=== PATIENT | female | born 1965 | race Caucasian/White ===

== ENCOUNTER 2017-07-14 16:38 | Inpatient (IN) | payer OTHER ==
[2017-07-14] MEDS ORDERED: NITROGLYCERIN OINT 1 INCH/GM PACKET TOPICAL STA (16:58)
[2017-07-14] MEDS ORDERED: ASPIRIN 81 MG PO STA (16:58)
--- NOTE | 2017-07-14 17:01 | ED ---
General Adult HPI - General Chief complaint: Chest Pain Stated complaint: Chest Pain Time Seen by Provider: 07/14/17 16:40 Source: patient, RN notes reviewed Mode of arrival: ambulatory Limitations: no limitations - History of Present Illness Initial comments: This is a 51-year-old female who presents emergency Department with no significant past medical history except morbid obesity. Patient states she has a significant family history of heart disease in her brothers and sisters and father. Patient states today about 1:00 she started having chest pain which she thought to be heartburn but taking her antacids did not help her. Patient states the pain radiates to the right side of her neck and she was short of breath with the pain. Patient states taking a deep breath seems to increase the pain. Patient denies any diaphoresis. Patient denies any headache patient denies numbness weakness. Patient denies any lightheadedness dizziness or near syncopal episode. Patient denies abdominal pain patient denies nausea vomiting or diarrhea. Patient states she has not had symptoms similar to this in the past. - Related Data Home Medications Medication Instructions Recorded Confirmed Famotidine [Pepcid AC] 10 mg PO DAILY PRN 07/14/17 07/14/17 Travoprost [Travatan Z 0.004%] 1 drop BOTH EYES HS 07/14/17 07/14/17 Allergies Allergy/AdvReac Type Severity Reaction Status Date / Time No Known Allergies Allergy Verified 07/14/17 17:12 Review of Systems ROS Statement: Those systems with pertinent positive or pertinent negative responses have been documented in the HPI. ROS Other: All systems not noted in ROS Statement are negative. Past Medical History Additional Past Medical History / Comment(s): glaucoma History of Any Multi-Drug Resistant Organisms: None Reported Past Surgical History: Section, Orthopedic Surgery Additional Past Surgical History / Comment(s): rt knee, partial hysterctomy Past Psychological History: No Psychological Hx Reported Smoking Status: Never smoker Past Alcohol Use History: None Reported Past Drug Use History: None Reported General Exam - General Exam Comments Initial Comments: GENERAL: Patient is well-developed and well-nourished. Patient is nontoxic and well- hydrated and is in mild distress. ENT: Neck is soft and supple. No significant lymphadenopathy is noted. Oropharynx is clear. Moist mucous membranes. Neck has full range of motion without eliciting any pain. EYES: The sclera were anicteric and conjunctiva were pink and moist. Extraocular movements were intact and pupils were equal round and reactive to light. Eyelids were unremarkable. PULMONARY: Unlabored respirations. Good breath sounds bilaterally. No audible rales rhonchi or wheezing was noted. CARDIOVASCULAR: There is a regular rate and rhythm without any murmurs gallops or rubs. ABDOMEN: Soft and nontender with normal bowel sounds. No palpable organomegaly was noted. There is no palpable pulsatile mass. SKIN: Skin is clear with no lesions or rashes and otherwise unremarkable. NEUROLOGIC: Patient is alert and oriented x3. Cranial nerves II through XII are grossly intact. Motor and sensory are also intact. Normal speech, volume and content. Symmetrical smile. MUSCULOSKELETAL: Normal extremities with adequate strength and full range of motion. No lower extremity swelling or edema. No calf tenderness. LYMPHATICS: No significant lymphadenopathy is noted PSYCHIATRIC: Normal psychiatric evaluation. Limitations: no limitations Course Vital Signs 07/14/17 07/14/17 16:40 17:45 Temperature 98.2 F Pulse Rate 103 H 93 Respiratory 22 16 Rate Blood Pressure 194/104 151/65 O2 Sat by Pulse 95 96 Oximetry Medical Decision Making - Medical Decision Making EKG shows normal sinus rhythm at 90 bpm IN interval 140 QRS is 90 QT interval 358 QTC is 459. Patient's EKG shows no ST segment elevation or depression or T wave normalities are noted. Patient does have 1 PAC Chest x-ray shows no acute abnormality. Patient still has a little chest pressure/started the patient on heparin. I spoke with Dr. Fenton he agreed to admit the patient I wrote admitting orders I continue the heparin nitro patient aspirin on the floor. I consult to cardiology. - Lab Data Result diagrams: 07/14/17 17:03 07/14/17 17:03 Lab Results 07/14/17 07/14/17 07/14/17 Range/Units 17:03 17:03 17:03 WBC 7.2 (3.8-10.6) k/uL RBC 4.86 (3.80-5.40) m/uL Hgb 15.1 (11.4-16.0) gm/dL Hct 44.7 (34.0-46.0) % MCV 92.0 (80.0-100.0) fL MCH 31.1 (25.0-35.0) pg MCHC 33.8 (31.0-37.0) g/dL RDW 12.7 (11.5-15.5) % Plt Count 208 (150-450) k/uL Neutrophils % 60 % Lymphocytes % 31 % Monocytes % 5 % Eosinophils % 1 % Basophils % 1 % Neutrophils # 4.3 (1.3-7.7) k/uL Lymphocytes # 2.3 (1.0-4.8) k/uL Monocytes # 0.3 (0-1.0) k/uL Eosinophils # 0.1 (0-0.7) k/uL Basophils # 0.0 (0-0.2) k/uL PT (9.0-12.0) sec INR (<1.2) APTT (22.0-30.0) sec Sodium 138 (137-145) mmol/L Potassium 4.2 (3.5-5.1) mmol/L Chloride 100 (98-107) mmol/L Carbon Dioxide 25 (22-30) mmol/L Anion Gap 13 mmol/L BUN 10 (7-17) mg/dL Creatinine 0.80 (0.52-1.04) mg/dL Est GFR (MDRD) Af Amer >60 (>60 ml/min/1.73 sqM) Est GFR (MDRD) Non-Af >60 (>60 ml/min/1.73 sqM) Glucose 226 H (74-99) mg/dL Calcium 9.5 (8.4-10.2) mg/dL Magnesium 2.2 (1.6-2.3) mg/dL Total Bilirubin 0.4 (0.2-1.3) mg/dL AST 27 (14-36) U/L ALT 61 H (9-52) U/L Alkaline Phosphatase 100 (38-126) U/L Total Creatine Kinase 104 (30-135) U/L CK-MB (CK-2) 0.6 (0.0-2.4) ng/mL CK-MB (CK-2) Rel Index 0.6 Troponin I <0.012 (0.000-0.034) ng/mL NT-Pro-B Natriuret Pep pg/mL Total Protein 7.5 (6.3-8.2) g/dL Albumin 4.4 (3.5-5.0) g/dL 07/14/17 07/14/17 Range/Units 17:03 17:03 WBC (3.8-10.6) k/uL RBC (3.80-5.40) m/uL Hgb (11.4-16.0) gm/dL Hct (34.0-46.0) % MCV (80.0-100.0) fL MCH (25.0-35.0) pg MCHC (31.0-37.0) g/dL RDW (11.5-15.5) % Plt Count (150-450) k/uL Neutrophils % % Lymphocytes % % Monocytes % % Eosinophils % % Basophils % % Neutrophils # (1.3-7.7) k/uL Lymphocytes # (1.0-4.8) k/uL Monocytes # (0-1.0) k/uL Eosinophils # (0-0.7) k/uL Basophils # (0-0.2) k/uL PT 10.3 (9.0-12.0) sec INR 1.0 (<1.2) APTT 22.8 (22.0-30.0) sec Sodium (137-145) mmol/L Potassium (3.5-5.1) mmol/L Chloride (98-107) mmol/L Carbon Dioxide (22-30) mmol/L Anion Gap mmol/L BUN (7-17) mg/dL Creatinine (0.52-1.04) mg/dL Est GFR (MDRD) Af Amer (>60 ml/min/1.73 sqM) Est GFR (MDRD) Non-Af (>60 ml/min/1.73 sqM) Glucose (74-99) mg/dL Calcium (8.4-10.2) mg/dL Magnesium (1.6-2.3) mg/dL Total Bilirubin (0.2-1.3) mg/dL AST (14-36) U/L ALT (9-52) U/L Alkaline Phosphatase (38-126) U/L Total Creatine Kinase (30-135) U/L CK-MB (CK-2) (0.0-2.4) ng/mL CK-MB (CK-2) Rel Index Troponin I (0.000-0.034) ng/mL NT-Pro-B Natriuret Pep 42 pg/mL Total Protein (6.3-8.2) g/dL Albumin (3.5-5.0) g/dL Critical Care Time Critical Care Time: Yes Total Critical Care Time: 35 Disposition Clinical Impression: Unstable angina pectoris Disposition: ADMITTED IP TO THIS HOSP Referrals: None,Stated [Primary Care Provider] - 1-2 days Time of Disposition: 18:47
[2017-07-14 17:25] LABS: Basophils % (A) 1 %; CH 30.6; CHCM 33.4; Eosinophils # (A) 0.1 k/uL (0-0.7); Eosinophils % (A) 1 %; HCT 44.7 % (34.0-46.0); HDW 2.53; HGB 15.1 gm/dL (11.4-16.0); Luc # (Auto) 0.18; Luc % (Auto) 3; Lymphocytes # (A) 2.3 k/uL (1.0-4.8); Lymphocytes % (A) 31 %; MCH 31.1 pg (25.0-35.0); MCHC 33.8 g/dL (31.0-37.0); Mean Platelet Volume 7.5; Monocytes # (A) 0.3 k/uL (0-1.0); Monocytes % (A) 5 %; Neutrophils # (A) 4.3 k/uL (1.3-7.7); Neutrophils % (A) 60 %; RBC 4.86 m/uL (3.80-5.40); RDW 12.7 % (11.5-15.5); WBC 7.2 k/uL (3.8-10.6); WBC (Perox) 7.05
[2017-07-14 17:28] LABS: ALT 61 U/L (9-52); AST 27 U/L (14-36); Alkaline Phosphatase 100 U/L (38-126); Anion Gap 13 mmol/L; Blood Urea Nitrogen 10 mg/dL (7-17); Calcium 9.5 mg/dL (8.4-10.2); Carbon Dioxide 25 mmol/L (22-30); Chloride 100 mmol/L (98-107); Glucose 226 mg/dL (74-99); Magnesium 2.2 mg/dL (1.6-2.3); Non-African American GFR(MDRD) >60 (>60 ml/min/1.73 sqM); Potassium 4.2 mmol/L (3.5-5.1); Sodium 138 mmol/L (137-145); Total Bilirubin 0.4 mg/dL (0.2-1.3); Total Protein 7.5 g/dL (6.3-8.2)
[2017-07-14 17:31] LABS: Partial Thromboplastin Time 22.8 sec (22.0-30.0); Prothrombin Time 10.3 sec (9.0-12.0)
[2017-07-14 17:40] LABS: Creatine Kinase 104 U/L (30-135)
[2017-07-14 17:54] LABS: Creatine Kinase MB 0.6 ng/mL (0.0-2.4); Troponin I <0.012 ng/mL (0.000-0.034)
--- NOTE | 2017-07-14 18:16 | XR ---
EXAMINATION TYPE: XR chest 2V DATE OF EXAM: 07/14/2017 COMPARISON: NONE HISTORY: Pain TECHNIQUE: Frontal and lateral views of the chest are obtained. FINDINGS: There is no focal air space opacity, pleural effusion, or pneumothorax seen. The cardiac silhouette size is within normal limits. The osseous structures are intact. IMPRESSION: No acute cardiopulmonary process.
[2017-07-14] MEDS ORDERED: HEPARIN SODIUM,PORCINE 5,000 UNIT/ML 1 ML VIAL IV ONE (18:46)
[2017-07-14] MEDS ORDERED: NITROGLYCERIN SL TABS 0.4 MG TAB SUBLINGUAL PRN (18:47)
[2017-07-14] MEDS ORDERED: HEPARIN SODIUM,PORCINE/D5W PMX 25,000 UNIT in DEXTROSE/WATER 1 500ML.BAG IV SCH (19:00)
[2017-07-14 21:04] VITALS: BMI 48.2
[2017-07-14 23:44] LABS: Creatine Kinase 77 U/L (30-135)
[2017-07-14 23:56] LABS: Creatine Kinase MB 0.4 ng/mL (0.0-2.4); Troponin I <0.012 ng/mL (0.000-0.034)
[2017-07-15] MEDS: NITROGLYCERIN OINT 1 INCH/GM PACKET TOPICAL SCH ×2 (01:13→05:22)
[2017-07-15 05:06] LABS: Cholesterol 175 mg/dL (<200); HDL Cholesterol 41 mg/dL (40-60)
[2017-07-15 05:19] LABS: Creatine Kinase 66 U/L (30-135)
[2017-07-15 05:31] LABS: Creatine Kinase MB 0.3 ng/mL (0.0-2.4); Troponin I <0.012 ng/mL (0.000-0.034)
--- NOTE | 2017-07-15 10:49 | ECHOF ---
Referral Reason:chest pain MEASUREMENTS -------- HEIGHT: 149.9 cm WEIGHT: 108.0 kg BP: 141/84 RVIDd: 3.0 cm (< 3.3) IVSd: 1.2 cm (0.6 - 1.1) LVIDd: 4.8 cm (3.9 - 5.3) LVPWd: 1.2 cm (0.6 - 1.1) IVSs: 1.5 cm LVIDs: 2.9 cm LVPWs: 1.6 cm LA Diam: 3.4 cm (2.7 - 3.8) LAESV Index (A-L): 23.94 ml/m Ao Diam: 2.8 cm (2.0 - 3.7) AV Cusp: 1.9 cm (1.5 - 2.6) MV EXCURSION: 17.007 mm (> 18.000) MV EF SLOPE: 73 mm/s (70 - 150) EPSS: 0.3 cm MV E John: 0.89 m/s MV DecT: 222 ms MV A John: 0.86 m/s MV E/A Ratio: 1.04 FINDINGS -------- Sinus rhythm. This was a technically adequate study. The left ventricular size is normal. There is borderline concentric left ventricular hypertrophy. Overall left ventricular systolic function is normal with, an EF between 60 - 65 %. The right ventricle is normal in size. Normal LA size by volume 22+/-6 ml/m2. The right atrial size is normal. The aortic valve is trileaflet and appears structurally normal. The mitral valve is normal. The tricuspid valve appears structurally normal. There is no pulmonic regurgitation present. The aortic root size is normal. IVC Not well visulized. There is no pericardial effusion. CONCLUSIONS -------- 1. Sinus rhythm. 2. The mitral valve is normal. 3. The tricuspid valve appears structurally normal. 4. There is no pulmonic regurgitation present. 5. The aortic root size is normal. 6. IVC Not well visulized. 7. There is no pericardial effusion. 8. This was a technically adequate study. 9. The left ventricular size is normal. 10. There is borderline concentric left ventricular hypertrophy. 11. Overall left ventricular systolic function is normal with, an EF between 60 - 65 %. 12. The right ventricle is normal in size. 13. Normal LA size by volume 22+/-6 ml/m2. 14. The right atrial size is normal. 15. The aortic valve is trileaflet and appears structurally normal. AGRICULTURAL PURCHASING AGENT: Marcie Dumont RDCS
--- NOTE | 2017-07-15 11:05 | P.CRDCN ---
History of Present Illness Consult date: 07/15/17 History of present illness: This is a 51-year-old female. Past medical history significant for gastroesophageal reflux disease. She states yesterday while she was at work she started feeling midsternal chest heaviness. She states it felt like it was a brick sitting on the center of her chest. The pain radiated up into the right neck and jaw. It was associated with difficulty in taking a deep breath, diaphoresis and mild nausea. She states this pain persisted and she tried walking around to see if it would get better and it did not. She checked her blood pressure at work and it was elevated in the 190s. She presented to the emergency department blood pressure was 194/104 with a pulse of 103. She denies any history of hypertension. The pain went away after application of nitro patch. She is morbidly obese. She states she has never seen a fish bailer for any reason denies any history of CAD or [place]. She has never been a smoker. Risk factors include hypertriglyceridemia and obesity. EKG reveals sinus mechanism with no ST or T-wave abnormalities. Cardiac enzymes negative x3, BUN 10, Cr 0.8, electrolytes normal. Review of Systems Extensive review of systems performed, negative except mentioned in HPI. Past Medical History Past Medical History: Eye Disorder, GERD/Reflux, Osteoarthritis (OA) Additional Past Medical History / Comment(s): glaucoma, bronchitis, BRCA1 mariza History of Any Multi-Drug Resistant Organisms: None Reported Past Surgical History: Section, Orthopedic Surgery Additional Past Surgical History / Comment(s): arthroscopic rt knee, partial hysterctomy Past Anesthesia/Blood Transfusion Reactions: No Reported Reaction Past Psychological History: No Psychological Hx Reported Smoking Status: Never smoker Past Alcohol Use History: None Reported Past Drug Use History: None Reported - Past Family History Father Family Medical History: Cancer, Coronary Artery Disease (CAD), Hypertension Additional Family Medical History / Comment(s): Throat CA, Quad. CABG Mother Family Medical History: Hypertension Sister(s) Family Medical History: Cancer, Thyroid Disorder Additional Family Medical History / Comment(s): 3 sisters with breast CA, 2 sisters had cardiac ablations Brother(s) Family Medical History: Coronary Artery Disease (CAD) Additional Family Medical History / Comment(s): 2 brothers with heart problems 1 had [place] Medications and Allergies Home Medications Medication Instructions Recorded Confirmed Type Famotidine [Pepcid AC] 10 mg PO DAILY PRN 07/14/17 07/14/17 History Travoprost [Travatan Z 0.004%] 1 drop BOTH EYES HS 07/14/17 07/14/17 History Allergies Allergy/AdvReac Type Severity Reaction Status Date / Time No Known Allergies Allergy Verified 07/14/17 20:09 Physical Exam Vitals: Vital Signs Temp Pulse Pulse Resp BP BP Pulse Ox 07/15/17 07:44 98.0 F 81 18 141/84 97 07/15/17 04:00 98 F 80 18 127/63 95 07/15/17 00:00 98 F 78 18 132/79 97 07/14/17 20:25 18 07/14/17 20:23 97.9 F 95 18 138/85 97 07/14/17 19:33 98.7 F 97 18 142/78 98 07/14/17 18:56 102 H 16 150/84 95 07/14/17 17:45 93 16 151/65 96 07/14/17 16:40 98.2 F 103 H 22 194/104 95 Intake and Output 07/14/17 07/15/17 07/15/17 22:59 06:59 14:59 Intake Total 516 Balance 516 Intake: IV 160 0.9 NS @ KVO 160 Intake, IV Titration 356 Amount Heparin Sodium,Porcine/ 356 D5w Pmx 25,000 unit In Dextrose/Water 1 500ml. bag @ 9.6 UNITS/KG/HR 20. 03 mls/hr IV .Q24H [facility] Rx #:[id number] Other: Voiding Method Toilet Toilet # Voids 2 Weight 108.4 kg GENERAL: Well-appearing, well-nourished and in no acute distress. Morbidly obese. NECK: Supple without JVD or thyromegaly. LUNGS: Breath sounds clear to auscultation bilaterally. Respiration equal and unlabored. No wheezes, rales or rhonchi. HEART: Regular rate and rhythm without murmurs, rubs or gallops. S1 and S2 heard. EXTREMITIES: Normal range of motion, no edema. No clubbing or cyanosis. Peripheral pulses intact and strong. Results 07/14/17 17:03 07/14/17 17:03 Cardiac Enzymes 07/14/17 07/14/1717 Range/Units 17:03 17:03 23:12 AST 27 (14-36) U/L CK-MB (CK-2) 0.6 0.4 (0.0-2.4) ng/mL Troponin I <0.012 <0.012 (0.000-0.034) ng/mL 07/15/17 Range/Units 04:33 AST (14-36) U/L CK-MB (CK-2) 0.3 (0.0-2.4) ng/mL Troponin I <0.012 (0.000-0.034) ng/mL Coagulation 07/14/17 07/15/17 Range/Units 17:03 04:33 PT 10.3 (9.0-12.0) sec APTT 22.8 27.2 (22.0-30.0) sec Lipids 07/15/17 Range/Units 04:33 Triglycerides 197 H (<150) mg/dL Cholesterol 175 (<200) mg/dL HDL Cholesterol 41 (40-60) mg/dL CBC 07/14/17 Range/Units 17:03 WBC 7.2 (3.8-10.6) k/uL RBC 4.86 (3.80-5.40) m/uL Hgb 15.1 (11.4-16.0) gm/dL Hct 44.7 (34.0-46.0) % Plt Count 208 (150-450) k/uL Comprehensive Metabolic Panel 07/14/17 Range/Units 17:03 Sodium 138 (137-145) mmol/L Potassium 4.2 (3.5-5.1) mmol/L Chloride 100 (98-107) mmol/L Carbon Dioxide 25 (22-30) mmol/L BUN 10 (7-17) mg/dL Creatinine 0.80 (0.52-1.04) mg/dL Glucose 226 H (74-99) mg/dL Calcium 9.5 (8.4-10.2) mg/dL AST 27 (14-36) U/L ALT 61 H (9-52) U/L Alkaline Phosphatase 100 (38-126) U/L Total Protein 7.5 (6.3-8.2) g/dL Albumin 4.4 (3.5-5.0) g/dL Current Medications Generic Name Dose Route Start Last Admin Trade Name Freq PRN Reason Stop Dose Admin Aspirin 325 mg 07/15/17 09:00 Aspirin PO DAILY [facility] Heparin Sodium/Dextrose 25,000 500 mls @ 20.03 mls/hr 07/14/17 19:00 05:29 unit/ IV Solution IV 12.58 units/kg/hr .Q24H [facility] 26.24 mls/hr Protocol Titration 9.6 UNITS/KG/HR Nitroglycerin 1 inch 07/15/17 00:00 07/15/17 05:22 Nitro-Bid Oint TOPICAL Not Given Q6HR [facility] Nitroglycerin 0.4 mg 07/14/17 18:47 Nitrostat SUBLINGUAL Q5M PRN Chest Pain Intake and Output 07/14/17 07/15/17 07/15/17 22:59 06:59 14:59 Intake Total 516 Balance 516 Intake: IV 160 0.9 NS @ KVO 160 Intake, IV Titration 356 Amount Heparin Sodium,Porcine/ 356 D5w Pmx 25,000 unit In Dextrose/Water 1 500ml. bag @ 9.6 UNITS/KG/HR 20. 03 mls/hr IV .Q24H [facility] Rx #:[id number] Other: Voiding Method Toilet Toilet # Voids 2 Weight 108.4 kg 07/14/17 17:03 07/14/17 17:03 Assessment and Plan Plan: ASSESSMENT 1. Chest pain, atypical 2. Hypertension, new onset 3. Gastroesophageal reflux disease 4. Morbid obesity PLAN Obtain 2-D echo and Doppler study to assess LV structure and function; Perform Cardiolite stress test to rule out acute coronary event; Add lisinopril 10 mg by mouth daily; If this testing is normal the patient is stable from a cardiac perspective to be discharged home. She should follow-up with Dr. Walters in 4 weeks to reevaluate blood pressure. Nurse Practitioner note has been reviewed, I agree with a documented findings and plan of care. Patient was seen and examined.
[2017-07-15] MEDS: ASPIRIN 325 MG TAB PO SCH (11:58)
[2017-07-15] MEDS: LISINOPRIL 10 MG TAB PO SCH (11:59)
--- NOTE | 2017-07-15 12:06 | NM ---
EXAMINATION TYPE: NM stress cardiolite complete DATE OF EXAM: 07/15/2017 COMPARISON: Chest x-ray 07/14/2017 HISTORY: Chest pain TECHNIQUE: After the intravenous administration of 12 mCi Tc 99m Sestamibi - Rest images obtained 45 minutes post injection. The patient exercised using a MICHEL protocol and 1 minute prior to peak ex ercise was injected with 28.8 mCi Tc 99m Sestamibi - Stress images obtained 15 minutes post injection . FINDINGS: Targeted heart rate was achieved during performance of the study. Review of stress and rest SPECT марина ges demonstrates some decreased radio pharmaceutical uptake on stress imaging as compared to rest марина ging along the anterolateral left ventricle towards the apex. Gated analysis shows normal wall motion with an estimated left ventricular ejection fraction of 58 %. IMPRESSION: Findings suggest stress-induced left ventricular myocardial ischemia.
--- NOTE | 2017-07-15 12:24 | EST ---
EXERCISE STRESS DATE OF SERVICE: 07/15/2017 AGE: 51 SEX: Female HT: 59" WT: 238 pounds PROTOCOL: Cardiolite STAGE: III DURATION OF EXERCISE: 7 minutes HEART RATE REST: 97 BLOOD PRESSURE REST: 132/98 MAXIMUM HEART RATE ACHIEVED: 152 MAXIMUM BLOOD PRESSURE: 183/112 85% MPHR: 142 100% MPHR: 167 METS: 7.1 INDICATIONS: Chest pain. Baseline EKG shows sinus rhythm, normal axis, nonspecific ST-T wave changes. Patient exercised on Leonel protocol for a total of 7 minutes achieving 8 METs, 92% of predicted maximal heart rate without chest pain or diagnostic ST-segment depression. CONCLUSIONS: 1. Above-average exercise tolerance. 2. Negative stress test by EKG criteria. MMODL / IJN: [id number] /
[2017-07-15] MEDS ORDERED: ALPRAZolam 0.25 MG TAB PO PRN (13:20)
[2017-07-15] MEDS ORDERED: SODIUM CHLORIDE 0.9% 1,000 ML in EMPTY BAG 1 BAG IV ONE (13:20)
[2017-07-15] MEDS ORDERED: ALPRAZolam 0.5 MG TAB PO PRN (13:20)
[2017-07-15] MEDS ORDERED: ATORVASTATIN 80 MG TAB PO STA (13:20)
[2017-07-15] MEDS ORDERED: HEPARIN SODIUM,PORCINE 5,000 UNIT/ML 1 ML VIAL IV PRN (13:22)
[2017-07-15] MEDS ORDERED: HEPARIN SODIUM,PORCINE/D5W PMX 25,000 UNIT in DEXTROSE/WATER 1 500ML.BAG IV SCH (13:30)
[2017-07-15 14:27] LABS: Basophils % (A) 0 %; CH 30.3; CHCM 32.8; Eosinophils # (A) 0.1 k/uL (0-0.7); Eosinophils % (A) 1 %; HCT 43.8 % (34.0-46.0); HDW 2.52; HGB 14.6 gm/dL (11.4-16.0); Luc % (Auto) 1; Lymphocytes # (A) 1.9 k/uL (1.0-4.8); Lymphocytes % (A) 26 %; MCH 30.8 pg (25.0-35.0); MCHC 33.2 g/dL (31.0-37.0); MCV 92.7 fL (80.0-100.0); Mean Platelet Volume 7.6; Monocytes # (A) 0.3 k/uL (0-1.0); Monocytes % (A) 4 %; Neutrophils # (A) 4.9 k/uL (1.3-7.7); Neutrophils % (A) 67 %; RBC 4.73 m/uL (3.80-5.40); RDW 12.6 % (11.5-15.5); WBC 7.4 k/uL (3.8-10.6); WBC (Perox) 7.47
[2017-07-15 14:32] LABS: Partial Thromboplastin Time 22.1 sec (22.0-30.0); Prothrombin Time 10.4 sec (9.0-12.0)
--- NOTE | 2017-07-15 16:33 | P.HPIM ---
History of Present Illness This is a 51-year-old female. Past medical history significant for gastroesophageal reflux disease. She states yesterday while she was at work she started feeling midsternal chest heaviness. She states it felt like it was a brick sitting on the center of her chest. The pain radiated up into the right neck and jaw. It was associated with difficulty in taking a deep breath, diaphoresis and mild nausea. She states this pain persisted and she tried walking around to see if it would get better and it did not. She checked her blood pressure at work and it was elevated in the 190s. . The pain went away after application of nitro patch. She is morbidly obese. She states she has never seen a stand up comedian for any reason denies any history of CAD or [place]. She has never been a smoker. Risk factors include hypertriglyceridemia and obesity. EKG did not show any significant or abnormal is but patient underwent stress test which showed inducible ischemia for which patient will undergo cardiac catheterization tomorrow patient chest pain is nonpleuritic in nature not associated with food Review of Systems REVIEW OF SYSTEMS: CONSTITUTIONAL: No fever, no malaise, no fatigue. HEENT: No recent visual problems or hearing problems. Denied any sore throat. CARDIOVASCULAR: No chest pain, orthopnea, PND, no palpitations, no syncope. PULMONARY: No shortness of breath, no cough, no hemoptysis. GASTROINTESTINAL: No diarrhea, no nausea, no vomiting, no abdominal pain. Normoactive bowel sounds. NEUROLOGICAL: No headaches, no weakness, no numbness. HEMATOLOGICAL: Denies any bleeding or petechiae. GENITOURINARY: Denies any burning micturition, frequency, or urgency. MUSCULOSKELETAL/RHEUMATOLOGICAL: Denies any joint pain, swelling, or any muscle pain. ENDOCRINE: Denies any polyuria or polydipsia. The rest of the 14-point review of systems is negative. Past Medical History Past Medical History: Eye Disorder, GERD/Reflux, Osteoarthritis (OA) Additional Past Medical History / Comment(s): glaucoma, bronchitis, BRCA1 mariza History of Any Multi-Drug Resistant Organisms: None Reported Past Surgical History: Section, Orthopedic Surgery Additional Past Surgical History / Comment(s): arthroscopic rt knee, partial hysterctomy Past Anesthesia/Blood Transfusion Reactions: No Reported Reaction Past Psychological History: No Psychological Hx Reported Smoking Status: Never smoker Past Alcohol Use History: None Reported Past Drug Use History: None Reported - Past Family History Father Family Medical History: Cancer, Coronary Artery Disease (CAD), Hypertension Additional Family Medical History / Comment(s): Throat CA, Quad. CABG Mother Family Medical History: Hypertension Sister(s) Family Medical History: Cancer, Thyroid Disorder Additional Family Medical History / Comment(s): 3 sisters with breast CA, 2 sisters had cardiac ablations Brother(s) Family Medical History: Coronary Artery Disease (CAD) Additional Family Medical History / Comment(s): 2 brothers with heart problems 1 had [place] Medications and Allergies Home Medications Medication Instructions Recorded Confirmed Type Famotidine [Pepcid AC] 10 mg PO DAILY PRN 07/14/17 07/14/17 History Travoprost [Travatan Z 0.004%] 1 drop BOTH EYES HS 07/14/17 07/14/17 History Lisinopril [Zestril] 10 mg PO DAILY #30 tab 07/15/17 Rx Allergies Allergy/AdvReac Type Severity Reaction Status Date / Time No Known Allergies Allergy Verified 07/14/17 20:09 Physical Exam Vitals: Vital Signs Temp Pulse Pulse Resp BP BP Pulse Ox 07/15/17 15:51 97.8 F 89 18 113/63 92 L 07/15/17 12:00 18 07/15/17 11:42 97.9 F 96 18 139/88 94 L 07/15/17 08:00 18 07/15/17 07:44 98.0 F 81 18 141/84 97 07/15/17 04:00 98 F 80 18 127/63 95 07/15/17 00:00 98 F 78 18 132/79 97 07/14/17 20:25 18 07/14/17 20:23 97.9 F 95 18 138/85 97 07/14/17 19:33 98.7 F 97 18 142/78 98 07/14/17 18:56 102 H 16 150/84 95 07/14/17 17:45 93 16 151/65 96 07/14/17 16:40 98.2 F 103 H 22 194/104 95 Intake and Output 07/15/17 07/15/17 07/15/17 06:59 14:59 22:59 Intake Total 516 240 Balance 516 240 Intake: IV 160 0.9 NS @ KVO 160 Intake, IV Titration 356 Amount Heparin Sodium,Porcine/ 356 D5w Pmx 25,000 unit In Dextrose/Water 1 500ml. bag @ 9.6 UNITS/KG/HR 20. 03 mls/hr IV .Q24H [facility] Rx #:[id number] Oral 240 Other: Voiding Method Toilet Toilet # Voids 2 Results CBC & Chem 7: 07/15/17 13:56 07/14/17 17:03 Labs: Abnormal Lab Results - Last 24 Hours (Table) 07/14/17 07/15/17 Range/Units 17:03 04:33 Glucose 226 H (74-99) mg/dL ALT 61 H (9-52) U/L Triglycerides 197 H (<150) mg/dL Thrombosis Risk Factor Assmnt - Choose All That Apply Each Factor Represents 1 point: Age 41-60 years, Obesity (BMI >25) Thrombosis Risk Factor Assessment Total Risk Factor Score: 2 Thrombosis Risk Factor Assessment Level: Low Risk Assessment and Plan Plan: chest pain: Rule out acute coronary syndromes but patient's stress test came back positive patient is undergoing A cardiac catheterization. #2 hypertension: Patient was started on lisinopril with well-controlled blood pressure. #3 gastroesophageal reflux disease #4 morbid obesity
[2017-07-15] MEDS: FAMOTIDINE 20 MG TAB PO SCH (20:15)
[2017-07-16 05:34] LABS: Basophils % (A) 1 %; CH 30.4; CHCM 32.6; Eosinophils # (A) 0.2 k/uL (0-0.7); Eosinophils % (A) 3 %; HCT 40.8 % (34.0-46.0); HDW 2.52; HGB 13.5 gm/dL (11.4-16.0); Luc # (Auto) 0.11; Luc % (Auto) 2; Lymphocytes # (A) 2.1 k/uL (1.0-4.8); Lymphocytes % (A) 37 %; MCHC 33.1 g/dL (31.0-37.0); MCV 93.5 fL (80.0-100.0); Mean Platelet Volume 8.1; Monocytes # (A) 0.3 k/uL (0-1.0); Monocytes % (A) 5 %; Neutrophils # (A) 3.1 k/uL (1.3-7.7); Neutrophils % (A) 53 %; RBC 4.36 m/uL (3.80-5.40); RDW 12.9 % (11.5-15.5); WBC 5.7 k/uL (3.8-10.6); WBC (Perox) 6.37
[2017-07-16] MEDS: ASPIRIN 325 MG TAB PO SCH (06:24)
[2017-07-16] MEDS: LISINOPRIL 10 MG TAB PO SCH (06:25)
[2017-07-16] MEDS ORDERED: SODIUM CHLORIDE 0.9% 1,000 ML IV ONE (09:07)
[2017-07-16] MEDS ORDERED: diphenhydrAMINE 50 MG/ML 1 ML VIAL ONE (09:08)
[2017-07-16] MEDS ORDERED: MIDAZOLAM 2 MG/2 ML VIAL ONE (09:08)
[2017-07-16] MEDS ORDERED: fentaNYL (PF) 50 MCG/ML 2 ML AMP ONE (09:10)
[2017-07-16] MEDS ORDERED: diphenhydrAMINE 50 MG/ML 1 ML VIAL IVP ONE (09:12)
[2017-07-16] MEDS ORDERED: MIDAZOLAM 2 MG/2 ML VIAL IV ONE (09:13)
[2017-07-16] MEDS ORDERED: fentaNYL (PF) 50 MCG/ML 2 ML AMP IV ONE (09:13)
[2017-07-16] MEDS ORDERED: LIDOCAINE 2% INJ 20 MG/ML SQ ONE (09:15)
[2017-07-16] MEDS ORDERED: IOHEXOL 350 MG/ML 125ML BOTTLE INJ ONE (09:30)
[2017-07-16] MEDS ORDERED: RX INFO: IV CONTRAST WAS GIVEN 1 EACH MISC MISCELLANE PRN (09:32)
--- NOTE | 2017-07-16 10:10 | CC ---
CARDIAC CATHETERIZATION REPORT INDICATION: Unstable angina with abnormal stress test. PROCEDURE NOTE: After obtaining informed consent, left heart catheterization and coronary angiogram are performed via the right femoral artery using standard Petr catheters. Patient tolerated the procedure well without any obvious immediate complications. The femoral angiogram was performed and addition was made for manual hemostasis. Patient received moderate conscious sedation. The total sedation time was 15 minutes. FINDINGS: 1. HEMODYNAMICS: Left ventricular end-diastolic pressure is 14 mm. There is no significant gradient across the aortic valve. 2. LEFT VENTRICULOGRAM: Left ventriculogram is not performed. 3. ANGIOGRAPHIC DATA:. 4. LEFT MAIN CORONARY ARTERY: Left main coronary artery is a normal-sized vessel and is free of stenosis. It divides into left anterior descending coronary artery and circumflex coronary artery. LAD and its branches, circumflex coronary artery and its branches are free of significant stenosis. Right coronary artery is a large dominant vessel and is free of significant disease. CONCLUSION: 1. Normal coronary arteries. 2. Normal left ventricular end-diastolic pressure. PLAN: I reviewed angiographic data with the patient and told her that the stress test is a false positive stress test and that her management is going to be in the form of risk factor modification. MMODL / IJN: [id number] /
[2017-07-16] MEDS: FAMOTIDINE 20 MG TAB PO SCH (10:37)
--- NOTE | 2017-07-16 11:39 | P.PN ---
Progress Note - Text Progress Note Date: 07/15/17 Cardiolite stress test complete. Findings suggest stress-induced left ventricular myocardial ischemia on the anterior lateral left ventricle towards the apex. Findings discussed with the patient, her ,sister and daughter. Cardiac catheterization has been recommended. I have discussed the risks, benefits and alternative therapies for the above-mentioned procedure and for both sedation/analgesia as well as necessary blood product administration, if indicated, as they pertain to this patient. The patient has indicated understanding and acceptance of the risks and procedures discussed. Questions have been answered appropriately. The patient is agreeable to proceed with the above mentioned procedure with Dr. Walters tomorrow morning at 9 AM.
[2017-07-16 15:43] VITALS: BP 136/60; PULSE 84; RESP 18; TEMP 98.1
--- NOTE | 2017-07-16 16:14 | P.DS ---
Providers Date of admission: 07/15/17 12:19 Patient was admitted for chest pain, had a positive stress test because of which patient underwent cardia catheterization which did not show any significant coronary occlusive disease. Patient chest pain is probably musculoskeletal in nature.PHYSICAL EXAMINATION: GENERAL: The patient is alert and oriented x3, not in any acute distress. Well developed, well nourished. HEENT: Pupils are round and equally reacting to light. EOMI. No scleral icterus. No conjunctival pallor. Normocephalic, atraumatic. No pharyngeal erythema. No thyromegaly. CARDIOVASCULAR: S1 and S2 present. No murmurs, rubs, or gallops. PULMONARY: Chest is clear to auscultation, no wheezing or crackles. ABDOMEN: Soft, nontender, nondistended, normoactive bowel sounds. No palpable organomegaly. MUSCULOSKELETAL: No joint swelling or deformity. EXTREMITIES: No cyanosis, clubbing, or pedal edema. NEUROLOGICAL: Gross neurological examination did not reveal any focal deficits. SKIN: No rashes. chest pain: Probably musculoskeletal in nature #2 hypertension: Patient was started on lisinopril with well-controlled blood pressure. #3 gastroesophageal reflux disease #4 morbid obesity Attending physician: Cheng Joseph Consults: 07/14/17 18:48 Consult Physician Urgent Consulting Provider: [facility] Consult Reason/Comments: Unstable angina Do you want consulting provider notified?: Yes Primary care physician: Stated None Plan - Discharge Summary New Discharge Prescriptions: No Action Travoprost [Travatan Z 0.004%] 1 drop BOTH EYES HS Famotidine [Pepcid AC] 10 mg PO DAILY PRN PRN Reason: Heartburn Discharge Medication List Famotidine [Pepcid AC] 10 mg PO DAILY PRN 07/14/17 [History] Travoprost [Travatan Z 0.004%] 1 drop BOTH EYES HS 07/14/17 [History] Follow up Appointment(s)/Referral(s): None,Stated [Primary Care Provider] - 1-2 days Ke Walters MD [STAFF PHYSICIAN] - 2 Weeks (Appointment is July 22 @ 4pm for groin check) Patient Instructions/Handouts: *[facility] - After Heart Catheterization - [employer] Instructions Discharge Disposition: HOME SELF-CARE
[2017-07-16] MEDS ORDERED: ATORVASTATIN 80 MG TAB PO SCH (21:00)
== END 2017-07-16 17:34 | disposition home or self-care (01) | DRG 287 ==
LOC: EC 16:38 → 3OBS 18:48 → OBSVTOIN 07-15 12:19
PROVIDERS: ADMIT Hospitalist; ATTEND Hospitalist
PROC: B2111ZZ Fluoroscopy of Multiple Coronary Arteries using Low Osmolar Contrast (ICD-10-PCS; 2017-07-16)
PROC: B2151ZZ Fluoroscopy of Left Heart using Low Osmolar Contrast (ICD-10-PCS; 2017-07-16)
PROC: 4A023N7 Measurement of Cardiac Sampling and Pressure, Left Heart, Percutaneous Approach (ICD-10-PCS; principal; 2017-07-16 09:00)
DX: R07.89 Other chest pain (principal); E66.01 Morbid (severe) obesity due to excess calories; I10 Essential (primary) hypertension; K21.9 Gastro-esophageal reflux disease without esophagitis; M19.90 Unspecified osteoarthritis, unspecified site; H40.9 Unspecified glaucoma; Z79.899 Other long term (current) drug therapy; Z90.710 Acquired absence of both cervix and uterus; Z82.49 Family history of ischemic heart disease and other diseases of the circulatory system; Z80.8 Family history of malignant neoplasm of other organs or systems; Z80.3 Family history of malignant neoplasm of breast
CPT/HCPCS: 36415; 71020; 78452; 80053; 80061; 82550; 82553; 83735; 83880; 84484; 85025; 85610; 85730; 93005; 93017; 93306; 93458; 99291

== ENCOUNTER → 2018-01-02 | Outpatient (CLI) | payer OTHER ==
--- NOTE | 2018-01-05 07:58 | MM ---
Reason for exam: screening (asymptomatic). Last mammogram was performed 1 year and 10 months ago. History: Patient is postmenopausal. Family history of breast cancer in sister at age 40 and breast cancer in sister at age 42. Took hormonal contraceptives for 3 years beginning at age 17. Physical Findings: A clinical breast exam by your physician is recommended on an annual basis and results should be correlated with mammographic findings. MG Screening Mammo w CAD Bilateral CC and MLO view(s) were taken. XCCL view(s) were taken of the right breast. Prior study comparison: March 08, 2016, bilateral MG screening mammo w CAD. June 04, 2013, bilateral digital screening mammo w/CAD. There are scattered fibroglandular densities. Finding: There are typically benign round calcifications in both breasts. There is no discrete abnormality. ASSESSMENT: Negative, BI-RAD 1 RECOMMENDATION: Routine screening mammogram of both breasts in 1 year.
== END | disposition home or self-care (01) ==
LOC: RADMAMWWP 08:47
PROVIDERS: ATTEND Family Medicine
DX: Z12.31 Encounter for screening mammogram for malignant neoplasm of breast (principal)
CPT/HCPCS: 77067

== ENCOUNTER → 2019-01-15 | Outpatient (CLI) | payer OTHER ==
--- NOTE | 2019-01-18 11:53 | MM ---
Reason for exam: screening (asymptomatic). Last mammogram was performed 1 year ago. History: Patient is postmenopausal. Family history of breast cancer in sister at age 40 and breast cancer in sister at age 42. Took hormonal contraceptives for 3 years beginning at age 17. Physical Findings: A clinical breast exam by your physician is recommended on an annual basis and results should be correlated with mammographic findings. MG Screening Mammo w CAD Bilateral CC and MLO view(s) were taken. Prior study comparison: January 02, 2018, bilateral MG screening mammo w CAD. March 08, 2016, bilateral MG screening mammo w CAD. There are scattered fibroglandular densities. There is no discrete abnormality. No significant changes when compared with prior studies. ASSESSMENT: Negative, BI-RAD 1 RECOMMENDATION: Routine screening mammogram of both breasts in 1 year.
== END ==
LOC: RADMAMWWP 06:56
PROVIDERS: ATTEND Family Medicine
DX: Z12.31 Encounter for screening mammogram for malignant neoplasm of breast (principal)
CPT/HCPCS: 77067

== ENCOUNTER → 2021-03-08 | Outpatient (CLI) | payer OTHER ==
--- NOTE | 2021-03-09 07:46 | MM ---
Reason for exam: screening (asymptomatic). Last mammogram was performed 2 years and 2 months ago. History: Patient is postmenopausal. Family history of breast cancer in sister at age 40 and breast cancer in sister at age 42. Took hormonal contraceptives for 3 years beginning at age 17. Physical Findings: A clinical breast exam by your physician is recommended on an annual basis and results should be correlated with mammographic findings. MG Screening Mammo w CAD Bilateral CC and MLO view(s) were taken. Prior study comparison: January 15, 2019, bilateral MG screening mammo w CAD. January 02, 2018, bilateral MG screening mammo w CAD. There are scattered fibroglandular densities. No significant changes when compared with prior studies. ASSESSMENT: Benign, BI-RAD 2 RECOMMENDATION: Routine screening mammogram of both breasts in 1 year.
== END | disposition home or self-care (01) ==
LOC: RADMAMWWP 09:33
PROVIDERS: ATTEND Family Medicine
DX: Z12.31 Encounter for screening mammogram for malignant neoplasm of breast (principal); Z78.0 Asymptomatic menopausal state; Z80.3 Family history of malignant neoplasm of breast
CPT/HCPCS: 77067

== ENCOUNTER → 2022-03-18 | Outpatient (CLI) | payer OTHER ==
--- NOTE | 2022-03-20 07:48 | MM ---
Reason for Exam: Screening (asymptomatic). Last mammogram was performed 1 year(s) and 1 month(s) ago. Patient History: Menarche at age 10. First Full-Term at age 19. Left ovary removed at age 42. Right ovary removed at age 42. Hysterectomy at age 42. Postmenopausal. Patient tested for BRCA1 outcome was positive. Hormonal Contraceptives for 3 years from age 17 until age 22. Sister (lukasz) had breast cancer, age 40. Sister (marlon) had breast cancer, left, age 42. Sister (grover) had breast cancer, age 54. Sister (lukasz) tested for BRCA1 outcome was negative. Sister (marlon) tested for BRCA1 outcome was positive. Sister (grover) tested for BRCA1 outcome was positive. Prior Study Comparison: 01/02/2018 Bilateral Screening Mammogram, [facility]. 01/15/2019 Bilateral Screening Mammogram, [facility]. 03/08/2021 Bilateral Screening Mammogram, [facility]. Tissue Density: There are scattered fibroglandular densities. Findings: Analyzed By CAD. There is no suspicious group of microcalcifications or new suspicious mass in either breast. Overall Assessment: Negative, BI-RAD 1 Management: Screening Mammogram of both breasts in 1 year. A clinical breast exam by your physician is recommended on an annual basis and results should be correlated with mammographic findings. Electronically signed and approved by: Randy Jovel M.D. Radiologis
== END | disposition home or self-care (01) ==
LOC: RADMAMWWP 10:16
PROVIDERS: ATTEND Family Medicine
DX: Z12.31 Encounter for screening mammogram for malignant neoplasm of breast (principal); Z78.0 Asymptomatic menopausal state
CPT/HCPCS: 77067

== ENCOUNTER → 2023-06-04 | Outpatient (CLI) | payer OTHER ==
--- NOTE | 2023-06-05 08:32 | MM ---
Reason for Exam: Screening (asymptomatic). Last mammogram was performed 1 year(s) and 2 month(s) ago. Patient History: Menarche at age 10. First Full-Term at age 19. Left ovary removed at age 42. Right ovary removed at age 42. Hysterectomy at age 42. Postmenopausal. Patient tested for BRCA1 outcome was positive. Hormonal Contraceptives for 3 years from age 17 until age 22. Sister (lukasz) had breast cancer, age 40. Sister (marlon) had breast cancer, left, age 42. Sister (grover) had breast cancer, age 54. Sister (lukasz) tested for BRCA1 outcome was negative. Sister (marlon) tested for BRCA1 outcome was positive. Sister (grover) tested for BRCA1 outcome was positive. Prior Study Comparison: 01/15/2019 Bilateral Screening Mammogram, [facility]. 03/08/2021 Bilateral Screening Mammogram, [facility]. 03/18/2022 Bilateral MG screening mammo w CAD, [facility]. Tissue Density: There are scattered fibroglandular densities. Findings: Analyzed By CAD. There is no suspicious group of microcalcifications or new suspicious mass in either breast. Benign round calcifications within both breasts. Overall Assessment: Benign, BI-RAD 2 Management: Screening Mammogram of both breasts in 1 year. A clinical breast exam by your physician is recommended on an annual basis and results should be correlated with mammographic findings. Electronically signed and approved by: David Kunz D.O.
== END | disposition home or self-care (01) ==
LOC: RADMAMWWP 15:06
PROVIDERS: ATTEND Family Medicine
DX: Z12.31 Encounter for screening mammogram for malignant neoplasm of breast (principal); Z78.0 Asymptomatic menopausal state; Z80.3 Family history of malignant neoplasm of breast; Z15.01 Genetic susceptibility to malignant neoplasm of breast
CPT/HCPCS: 77067

== ENCOUNTER → 2024-06-23 | Outpatient (CLI) | payer OTHER ==
--- NOTE | 2024-06-24 14:34 | MM ---
Reason for Exam: Screening (asymptomatic). Last mammogram was performed 1 year(s) and 1 month(s) ago. Patient History: Menarche at age 10. First Full-Term at age 19. Left ovary removed at age 42. Right ovary removed at age 42. Hysterectomy at age 42. Postmenopausal. Patient tested for BRCA1 outcome was positive. Hormonal Contraceptives for 3 years from age 17 until age 22. Sister (lukasz) had breast cancer, age 40. Sister (marlon) had breast cancer, left, age 42. Sister (grover) had breast cancer, age 54. Sister (lukasz) tested for BRCA1 outcome was negative. Sister (marlon) tested for BRCA1 outcome was positive. Sister (grover) tested for BRCA1 outcome was positive. Prior Study Comparison: 03/08/2021 Bilateral Screening Mammogram, [facility]. 03/18/2022 Bilateral MG screening mammo w CAD, [facility]. 06/04/2023 Bilateral MG screening mammo w CAD, [facility]. Tissue Density: There are scattered areas of fibroglandular density. Findings: Analyzed By CAD. There is no suspicious group of microcalcifications or new suspicious mass in either breast. Overall Assessment: Negative, BI-RAD 1 Management: Screening Mammogram of both breasts in 1 year. . Patient should continue monthly self-breast exams. A clinical breast exam by your physician is recommended on an annual basis. This exam should not preclude additional follow-up of suspicious palpable abnormalities. Note on Rosa scores and lifetime risk: 1. A Rosa score greater than 3% is considered moderate risk. If this is the case, consider specialist referral to assess eligibility for a risk reducing agent. 2. If overall lifetime risk for the development of breast cancer is 20% or higher, the patient may qualify for future screening with alternating mammogram and breast MRI. Electronically signed and approved by: Randy Jovel M.D. Radiologis
== END | disposition home or self-care (01) ==
LOC: RADMAMWWP 08:04
PROVIDERS: ATTEND Family Medicine
DX: Z12.31 Encounter for screening mammogram for malignant neoplasm of breast
CPT/HCPCS: 77063; 77067

== ENCOUNTER → 2024-08-04 | Outpatient (CLI) | payer OTHER ==
[2024-08-04 10:52] LABS: ALT 45 U/L (8-44); AST 24 U/L (13-35); Albumin 4.3 g/dL (3.8-4.9); Albumin/Globulin Ratio 1.87 Ratio (1.60-3.17); Alkaline Phosphatase 79 U/L (41-126); BUN/Creat Ratio 19.67 Ratio (12.00-20.00); Blood Urea Nitrogen 11.8 mg/dL (9.0-27.0); Carbon Dioxide 24.6 mmol/L (21.6-31.8); Chloride 104 mmol/L (96-109); Chol/HDL Ratio 3.49 Ratio; Globulin 2.3 g/dL (1.6-3.3); Glucose 184 mg/dL (70-110); LDL Cholesterol,Calculated 78.3 mg/dL (0.0-131.0); Potassium 4.1 mmol/L (3.5-5.5); Sodium 140 mmol/L (135-145); Total Bilirubin 0.3 mg/dL (0.3-1.2); Total Protein 6.6 g/dL (6.2-8.2)
== END | disposition home or self-care (01) ==
LOC: LABWHC1 07:28
PROVIDERS: ATTEND Family Medicine
DX: E11.65 Type 2 diabetes mellitus with hyperglycemia (principal)
CPT/HCPCS: 36415; 80053; 80061; 83036

== ENCOUNTER → 2025-02-14 | Outpatient (CLI) | payer BC ==
[2025-02-14 14:58] LABS: Basophils # (A) 0.03 X 10*3/uL (0.00-0.10); Basophils % (A) 0.6 %; Eosinophils # (A) 0.11 X 10*3/uL (0.04-0.35); Eosinophils % (A) 2.2 %; HCT 38.6 % (37.2-46.3); HGB 12.8 g/dL (12.0-15.0); Lymphocytes # (A) 1.83 X 10*3/uL (0.90-5.00); Lymphocytes % (A) 37.3 %; MCH 29.8 pg (27.0-32.0); MCHC 33.2 g/dL (32.0-37.0); MCV 89.8 FL (80.0-97.0); Mean Platelet Volume 11.2 FL (9.5-12.2); Monocytes # (A) 0.36 X 10*3/uL (0.20-1.00); Monocytes % (A) 7.3 %; NRBC Per 100 WBC 0 X 10*3/uL (0.00-0.01); Neutrophils # (A) 2.57 X 10*3/uL (1.80-7.70); Neutrophils % (A) 52.4 %; Platelet Count 202 X 10*3/uL (140-440); RDW 12.5 % (11.5-14.5); WBC 4.91 X 10*3/uL (4.50-10.00)
[2025-02-14 15:30] LABS: BUN/Creat Ratio 18.83 Ratio (12.00-20.00); Blood Urea Nitrogen 11.3 mg/dL (9.0-27.0); Chol/HDL Ratio 3.67 Ratio; Glucose 202 mg/dL (70-110)
[2025-02-14 15:31] LABS: ALT 49 U/L (8-44); AST 27 U/L (13-35); Albumin 4.3 g/dL (3.8-4.9); Albumin/Globulin Ratio 1.87 Ratio (1.60-3.17); Alkaline Phosphatase 81 U/L (41-126); Calcium 9.2 mg/dL (8.7-10.3); Carbon Dioxide 23.1 mmol/L (21.6-31.8); Chloride 104 mmol/L (96-109); Globulin 2.3 g/dL (1.6-3.3); LDL Cholesterol,Calculated 79.3 mg/dL (0.0-131.0); Potassium 3.9 mmol/L (3.5-5.5); Sodium 139 mmol/L (135-145); Total Bilirubin 0.3 mg/dL (0.3-1.2); Total Protein 6.6 g/dL (6.2-8.2)
[2025-02-14 20:28] LABS: Microalbumin Creatinine Ratio <86 mg/g Cr (0-30)
== END | disposition home or self-care (01) ==
LOC: LABWHC1 08:45
PROVIDERS: ATTEND Family Medicine
DX: E11.65 Type 2 diabetes mellitus with hyperglycemia (principal)
CPT/HCPCS: 36415; 80053; 80061; 82043; 82570; 83036; 84443; 85025